=== PATIENT | female | born 1980 | race Hispanic/Latino ===

== ENCOUNTER 2016-07-02 16:55 | Emergency (ER) | payer OTHER ==
[~2016-07-02] VITALS: Ht 154.9 cm; Wt 81.6 kg
[~2016-07-02 16:55] MED LIST: AMOXIL500 MG PO; BACTRIM DS TAB1 EACH PO; FLOMAX0.4 M1 PO; IBUPROFEN600 M1 PO; NOVAPLUS V0.09 MG/Ac INH; PERCOCET 5-3251 EACH PO; PREDNISONE 20MG20 MG PO; PYRIDIUM100 M1 PO; TESSALON PERLE100 MG PO; VICOPROFEN 7.51 TAB PO; ZITHROMAX Z-PA250 M1 PO
[2016-07-02 17:03] VITALS: BP 144/94
--- NOTE | 2016-07-02 18:24 | ED INFLUENZA/URI COMPLAINT ---
History of Present Illness General Chief Complaint: Upper Respiratory Sx/Fever Stated Complaint: COUGH FEVER SORE THROAT Source: patient Exam Limitations: no limitations Vital Signs & Intake/Output Vital Signs & Intake/Output Vital Signs Date Time Temp Pulse Resp B/P B/P Pulse O2 O2 Flow FiO2 Mean Ox Delivery Rate 07/02 1703 98.2 110 16 144/94 96 Room Air ED Intake and Output 07/03 0000 07/02 1200 Intake Total 0 Output Total Balance 0 Intake, Oral 0 Patient 180 lb Weight Weight Reported by Patient Measurement Method Allergies Coded Allergies: NO KNOWN ALLERGIES (04/12/15) Reconcile Medications Amoxicillin 500 MG TABLET 1 TAB PO TID STREP Triage Note: PT STATES SHE HAS A BAD COUGH AND SHE VOMITED TODAY AND NOW SHE FEELS LIKE SHE IS GETTING WARM Triage Nurses Notes Reviewed? yes Onset: Gradual Duration: day(s): (1) Timing: remote history Severity: moderate Severity Numbers: 7 Prior Episodes/Possible Cause: occassional episodes Modifying Factors: Worsens With: other (SWALLOWING). : No Patient currently breastfeeds: No HPI: Patient is a 35YO female presenting to the emergency Department chief complaint of cough sore throat and tactile fevers have been going on for the past one day. She reports also mild work has strep throat. Sensory is achy worse with swallowing. She reports that she was coughing to the point that she almost vomited earlier today. Denies taking anything now for symptoms. Denies any diarrhea. No abdominal pain. No chest pain or palpitations. No shortness of breath. Denies any sputum production. (SULTANA FRAIRE) Past History Travel History Traveled to [place] past 21 day No Medical History Any Pertinent Medical History? see below for history Neurological: NONE EENT: NONE Cardiovascular: NONE Respiratory: NONE Gastrointestinal: NONE Hepatic: NONE Renal: nephrolithiasis Musculoskeletal: NONE Psychiatric: NONE Endocrine: NONE Blood Disorders: NONE Cancer(s): NONE Surgical History Surgical History: Psychosocial History What is your primary language Moroccan Tobacco Use: Quit >30 days ago ETOH Use: occasional use Illicit Drug Use: denies illicit drug use Family History Hx Contributory? No (SULTANA FRAIRE) Review of Systems Review of Systems Constitutional: Reports: see HPI, fever. Comments Review of systems: See HPI, All other systems negative. Constitutional, no weight loss HEENT: No visual changes no sore throat no congestion Cardiovascular: No chest pain ,palpitation , orthopnea or ankle swelling Skin, no jaundice no rashes Respiratory: No dyspnea sputum or hemoptysis GI: No nausea no vomiting : No dysuria No hematuria Muscle skeletal: no back pain, no neck pain, Neurologic: No numbness no confusion NO HUBBARD Psych: No stress anxiety or depression,. Heme/endocrine: No bruising no bleeding no polyuria or polydipsia Immunology: No splenectomy or history of AIDS (SULTANA FRAIRE) Physical Exam Physical Exam General Appearance: well developed/nourished, no apparent distress, alert, awake , comfortable Ears, Nose, Throat: PHARYNGEAL ERYTHEMA. Comments: Well-developed well-nourished person in no acute distress HEENT: Pupils equally round and reactive to light and accommodation. Nose is atraumatic. External auditory canal and Tympanic membranes clear. Pharynx is moderately erythematous, no exudate, clear secretions without difficulty. Uvula midline. No swelling or edema. Neck: Supple, no lymphadenopathy, normal range of motion without pain or tenderness Cardiovascular: Regular rate and rhythms no murmurs rubs or gallops, normal JVP Respiratory: Chest nontender. No respiratory distress.breath sounds clear to auscultation bilaterally Extremity: No edema Neuro: Alert oriented x3 Skin: No appreciable rash on exposed skin, skin is warm and dry. Psych: Mood and affect is normal, memory and judgment is normal. Core Measures Severe Sepsis Present: No Septic Shock Present: No (SULTANA FRAIRE) Progress Differential Diagnosis: influenza, pharyngitis, sinusitis, BRONCHITIS, PNEUMONIA Plan of Care: Orders Procedure Date/time Status THROAT CULTURE W/QUICK STREP 07/02 1706 Complete Initial ED EKG: none Comments: Positive rapid strep test. Patient will be treated with amoxicillin. (SULTANA FRAIRE) Departure Departure Time of Disposition: 1824 Disposition: HOME OR SELF CARE Condition: Stable Clinical Impression Primary Impression: Strep pharyngitis Referrals: PATIENT HAS NO PRIMARY CARE DR (PCP/Family) Additional Instructions: Follow-up with your primary care physician calling appointment. Take amoxicillin as prescribed for strep throat. Increase fluids. Take over-the- counter Motrin and Tylenol as directed. Return for worsening symptoms or concerns. Departure Forms: Customer Survey General Discharge Information Prescriptions: Current Visit Scripts Amoxicillin 1 TAB PO TID #30 TAB (ELIAS LINTON,SULTANA) PA/[employer] SUPER[employer]ENDENT Co-Sign Statement Statement: ED Attending supervision documentation- [] I saw and evaluated the patient. I have also reviewed all the pertinent lab results and diagnostic results. I agree with the findings and the plan of care as documented in the PA's/[employer]PER[employer]ENDENT's documentation. [x] I have reviewed the ED Record and agree with the PA's/[employer] SUPERINTENDENT's documentation. [] Additions or exceptions (if any) to the PAs/[employer] SUPERINTENDENT's note and plan are summarized below: [] (UMBERTO TOPETE,ADEEL)
[2016-07-02] MEDS ORDERED: AMOXICILLIN500 M3 PO (18:30)
== END 2016-07-02 18:34 ==
LOC: ERH 16:55
DX: J02.0 Streptococcal pharyngitis (principal); Z87.891 Personal history of nicotine dependence